=== PATIENT | female | born 1980 | race Caucasian/White ===

== ENCOUNTER 2017-11-24 18:07 | Emergency (ER) | payer OTHER ==
[~2017-11-24] VITALS: Ht 160 cm; Wt 110.0 kg
[2017-11-24 18:17] VITALS: BP 108/60; PULSE 98; RESP 16; TEMP 98.1; O2SAT 98
[2017-11-24] MEDS ORDERED: CYCLOBENZAPRINE HCL 10 MG TAB PO ONE (19:00)
[2017-11-24] MEDS ORDERED: IBUPROFEN 600 MG TAB PO ONE (19:00)
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
[2017-11-24] MEDS ORDERED: DICL75TA PO (20:06)
[2017-11-24] MEDS ORDERED: CYCL10TA PO (20:06)
--- NOTE | 2017-11-24 20:08 | PD ---
Physical Exam Date Seen by Provider: Nov 24, 2017 Time Seen by Provider: 20:06 Data Data Last Documented VS Vital Signs Date Time Temp Pulse Resp B/P (MAP) Pulse Ox O2 Delivery O2 Flow Rate FiO2 11/24/17 18:17 98.1 98 16 108/60 (76) [address] Brain W/O Iv Contrast(Rout) (11/24/17 ) Ct Cerv Spine W/O Contrast (11/24/17 ) Ibuprofen (Motrin) (11/24/17 19:00) Cyclobenzaprine (Flexeril) (11/24/17 19:00) MDM Medical Record Reviewed: Yes Supervised Visit with MARLI: No Interpretation(s) Last [address] 11/24/17 0000 Signed Impressions: Service Date/Time: Friday, November 24, 2017 19:20 - CONCLUSION: Negative noncontrast head CT. Quentin Chakraborty MD Cervical Spine CT 11/24/17 0000 Signed Impressions: Service Date/Time: Friday, November 24, 2017 19:20 - CONCLUSION: Cervical spine is intact. Degenerative changes at C4/C5 and C5/C6 are again noted. Quentin Chakraborty MD Differential Diagnosis MDM: High Differential diagnoses: Fracture, sprain, strain, dislocation, contusion, neurovascular injury Narrative Course CT scan of the cervical spine as as well as the brain is negative for trauma. The patient will be given diclofenac and Flexeril. Diagnosis Primary Impression: Head contusion Additional Impression: cervical strain Patient Instructions: General Instructions Additional Instruction: Rest. Ice for the next 3 days followed by heat . Flexeril and Voltaren. Follow-up with a primary care doctor in one week. Return to the ER for emergencies. Med/Other Pt SpecificInfo: Prescription(s) given Scripts Cyclobenzaprine (Flexeril) 10 Mg Tab 10 MG PO TID for Muscle Spasm, #30 TAB 0 Refills Prov: Donald Ewing MD 11/24/[address] (Diclofenac Sodium DR) 75 Mg Tabdr 75 MG PO BID, #20 TAB 0 Refills Prov: Donald Ewing MD 11/24/17 Disposition: 01 DISCHARGE HOME Condition: Stable Deshawn Kidd Nov 24, 2017 20:08
[2017-11-24] MEDS ORDERED: ACETAMINOPHEN/HYDROcodone 325 MG/5 MG TAB PO ONE (20:15)
[2017-11-24 20:23] VITALS: BP 109/58
== END 2017-11-24 20:23 | disposition home or self-care (01) ==
LOC: NEPD 18:07
DX: S00.93XA Contusion of unspecified part of head, initial encounter (principal); S16.1XXA Strain of muscle, fascia and tendon at neck level, initial encounter; V44.5XXA Car driver injured in collision with heavy transport vehicle or bus in traffic accident, initial encounter
CPT/HCPCS: 70450; 72125; 99284